=== PATIENT | male | born 1975 | race Caucasian/White ===

== ENCOUNTER 2020-07-27 09:19 | Emergency (ER) | payer BC ==
[~2020-07-27 09:19] MED LIST: BENTYL 20MG TAB20 MG PO; ZOFRAN ODT 4 MG4 MG PO
[2020-07-27 10:30] LABS: HEMOGLOBIN 16.1 gm/dl (14.0-17.5); RED BLOOD COUNT 5.07 M/UL (4.20-5.50)
[2020-07-27 10:55] LABS: BUN/CREATININE RATIO 17 (0-10)
[2020-07-27] MEDS ORDERED: VISTARIL25 MG PO (13:29)
== END 2020-07-27 13:47 | disposition home or self-care (01) ==
LOC: ER1 09:19
PROVIDERS: Physician Assistant Medical
DX: R07.89 Other chest pain (principal); R06.00 Dyspnea, unspecified; I10 Essential (primary) hypertension; F17.210 Nicotine dependence, cigarettes, uncomplicated
CPT/HCPCS: 71045; 80053; 80307; 81001; 82550; 82553; 83874; 84439; 84443; 84484; 85025; 85379; 85610; 99284

== ENCOUNTER → 2021-02-11 | Outpatient (CLI) | payer OTHER ==
[~2021-02-11] MED LIST changes: +VISTARIL25 MG PO
== END ==
LOC: KOH-I 12:27
DX: G57.11 Meralgia paresthetica, right lower limb (principal); R20.2 Paresthesia of skin; M47.816 Spondylosis without myelopathy or radiculopathy, lumbar region; M51.36 Other intervertebral disc degeneration, lumbar region
CPT/HCPCS: 72100; 73502